=== PATIENT | female | born 1965 | race Asian ===

== ENCOUNTER → 2016-03-05 | Outpatient (CLI) | payer BC ==
--- NOTE | 2016-03-05 16:05 | KCIC ---
PROCEDURE Bone mineral density exam HISTORY Rheumatoid arthritis, takes methotrexate COMPARISON None FINDINGS Bone mineral density exam utilizing DEXA was performed. Left hip bone mineral density of 0.807 grams/centimeter squared corresponds with T-score-1.1 and a Z-score-0.6. Lumbar spine bone mineral density 0.932 grams/centimeter square corresponds with T-score-1.0 and a Z-score of-0.2. World Health Organization criteria for bone mineral density interpretation: Normal T-score greater than or equal to-1.0, Osteopenia T score between-1.0 and-2.5, Osteoporosis T-score less than or equal to-2.5. IMPRESSION There is osteopenia of the left hip. Bone mineral density of the lumbar spine is considered within normal limits although borderline osteopenia. Electronically signed by: Hao Clarke MD (Mar 05, 2016 16:02:00)
--- NOTE | 2016-03-05 17:04 | KCIC ---
PROCEDURE Bilateral two view feet HISTORY Rheumatoid arthritis. Stress fracture left foot November 2015. Right 2nd toe pain. COMPARISON None FINDINGS Right foot Prior 1st metatarsal osteotomy with 2 screws. Narrowing at the 1st metatarsophalangeal joint with joint space loss. Bone demineralization. Joint space narrowing at the 4th metatarsophalangeal joint without evidence of erosion or bone production. No acute fracture. Left foot Postsurgical changes of a 1st metatarsal osteotomy with 2 screws. Mild cortical thickening of the mid shaft of the 2nd metatarsal, as could be expected with a subacute or chronic stress fracture. Joint spaces are grossly intact. Bone demineralization identified. IMPRESSION 1. Cortical thickening of the mid shaft of the left 2nd metatarsal, compatible with subacute or chronic stress fracture. 2. Asymmetric joint space narrowing of the right 4th metatarsal phalangeal joint without erosion or bone production. Electronically signed by: Bishop Moreau MD (Mar 05, 2016 17:00:52)
== END | disposition home or self-care (01) ==
LOC: KCIC 13:42
PROVIDERS: ATTEND Internal Medicine Rheumatology
DX: M06.9 Rheumatoid arthritis, unspecified (principal); M85.88 Other specified disorders of bone density and structure, other site; M84.375A Stress fracture, left foot, initial encounter for fracture; X58.XXXA Exposure to other specified factors, initial encounter; Y93.89 Activity, other specified; Y92.89 Other specified places as the place of occurrence of the external cause; Y99.8 Other external cause status
CPT/HCPCS: 73620; 77080

== ENCOUNTER → 2018-04-22 | Outpatient (CLI) | payer BC ==
--- NOTE | 2018-04-22 14:07 | KCIC ---
EXAM: Pelvis, single view. HISTORY: Rheumatoid arthritis. COMPARISON: None. FINDINGS: A frontal view of the pelvis is obtained. There is no fracture, dislocation or subluxation. The joint spaces are preserved. No suspicious osseous lesion is seen. IMPRESSION: No acute osseous finding. Electronically signed by: Colleen Vazquez MD (04/22/2018 2:01 PM) [email or web address]
== END | disposition home or self-care (01) ==
LOC: KCIC 12:18
PROVIDERS: ATTEND Internal Medicine Rheumatology
DX: M06.9 Rheumatoid arthritis, unspecified (principal); M19.029 Primary osteoarthritis, unspecified elbow; M25.551 Pain in right hip
CPT/HCPCS: 72170

== ENCOUNTER → 2018-09-02 | Outpatient (CLI) | payer BC ==
--- NOTE | 2018-09-02 14:33 | KCIC ---
CERVICAL SPINE WO CONTRAST History: Neck pain with radiculopathy. Bilateral upper extremity numbness. Technique: Multiplanar, multi sequential noncontrast MR imaging was performed of the cervical spine. Comparison: None Findings: Grade 1 anterolisthesis C3 on C4 approximately 4 mm. Mild retrolisthesis C5 on C6 proximal by 5 mm. Mild retrolisthesis C6 on C7 approximately 3 mm. Minimal anterolisthesis C7 on T1 proximal mid 2 mm. Focal kyphosis of the thoracic spine centered at C5. Normal appearance of the cervical spinal cord. No pathologic signal abnormality. C2-C3: Small posterior disc osteophyte complex. Uncovertebral and facet hypertrophy, left greater than right. Severe left and moderate right neuroforaminal narrowing. No canal narrowing. C3-C4: Anterolisthesis. Posterior disc osteophyte complex. Effacement of ventral CSF space. Mild cord flattening. Mild canal narrowing. Uncovertebral and facet arthropathy, right greater than left. Severe bilateral neural foraminal narrowing. C4-C5: Posterior disc osteophyte complex. Effacement of ventral CSF space. Mild cord flattening. Uncovertebral and facet arthropathy, left greater than right. Severe left and mild right neuroforaminal narrowing. C5-C6: Retrolisthesis. Posterior disc osteophyte. Effacement of ventral CSF space. Mild cord flattening. Mild canal narrowing. Uncovertebral and facet arthropathy. Moderate bilateral neural foraminal narrowing. C6-C7: Retrolisthesis. Posterior disc osteophyte complex. Minimal cord flattening. No canal narrowing. Uncovertebral and facet arthropathy. Moderate left and mild right neuroforaminal narrowing. C7-T1: Anterolisthesis. No canal or neuroforaminal narrowing. Impression: 1. Advanced multilevel cervical spondylosis with multilevel listhesis and focal kyphosis. 2. Multilevel mild canal narrowing and cord flattening most prominent C3-C4 and C5-C6. 3. Multilevel severe neural foraminal narrowing most prominent at C3-C4 and C4-C5. Electronically signed by: Paul Sepulveda DO (09/02/2018 2:30 PM) [id number]
== END | disposition home or self-care (01) ==
LOC: KCIC MRI 12:59
PROVIDERS: ATTEND Family Medicine
DX: M47.22 Other spondylosis with radiculopathy, cervical region (principal); M48.02 Spinal stenosis, cervical region; M40.293 Other kyphosis, cervicothoracic region; M25.78 Osteophyte, vertebrae; M12.88 Other specific arthropathies, not elsewhere classified, other specified site
CPT/HCPCS: 72141